=== PATIENT | male | born 1990 | race Caucasian/White ===

== ENCOUNTER 2020-08-04 11:19 | Emergency (ER) | payer SELFPAY ==
[~2020-08-04] VITALS: Ht 175.3 cm; Wt 79.8 kg
[2020-08-04] MEDS: MAG HYDROX/AL HYDROX/SIMETH 30 ML LIQUID UDC PO ONE (11:30)
[2020-08-04] MEDS: diphenhydrAMINE 50 MG/1 ML VIAL IV ONE (11:30)
[2020-08-04] MEDS: IV NORMAL SALINE 1000 ML BAG IV ONE (11:30)
[2020-08-04] MEDS: LIDOCAINE VISCUS 2% 15 ML UDC MM ONE (11:30)
[2020-08-04] MEDS: PROCHLORPERAZINE EDISYLATE 10 MG/2 ML VIAL IV ONE (11:30)
[2020-08-04 11:37] LABS: *BILIRUBIN,URIN NEGATIVE (NEGATIVE); *BLOOD, URINE NEGATIVE (NEGATIVE); *CLARITY,URINE CLOUDY (CLEAR); *COLOR,URINE YELLOW (YELLOW); *KETONES,URINE NEGATIVE (NEGATIVE); *UROBILINOGEN,URINE 0.2 E.U./dl (NORMAL); LEUKOCYTE ESTERASE ,URINE NEGATIVE (NEGATIVE); NITRITE, URINE NEGATIVE (NEGATIVE); PH,URINE 8.5 (5.0-8.0); UGLUCOSE NEGATIVE (NEGATIVE)
[2020-08-04 11:41] LABS: BASOPHILS # (AUTO) 0.1 K/uL (0.0-8.0); BASOPHILS % (AUTO) 0.6 % (0.0-2.0); EOSINOPHILS # (AUTO) 0.1 K/uL (0.0-0.7); EOSINOPHILS % (AUTO) 0.6 % (0.0-7.0); HEMOGLOBIN 14.2 g/dL (12.5-16.3); LYMPHOCYTES # (AUTO) 0.8 K/uL (20.0-40.0); LYMPHOCYTES % (AUTO) 8.8 % (20.5-51.5); MEAN CORPUSCULAR HEMOGLOBIN 28.6 uug (23.8-33.4); MEAN CORPUSCULAR HGB CONC 33 g/dL (32.5-36.3); MEAN CORPUSCULAR VOLUME 86.2 fL (73.0-96.2); MONOCYTES # (AUTO) 0.5 K/uL (2.0-10.0); MONOCYTES % (AUTO) 5.4 % (0.0-11.0); NEUTROPHILS % (AUTO) 84.6 % (38.5-71.5); PLATELET COUNT (AUTO) 182 K/uL (152-348); RED BLOOD CELL COUNT(AUTO) 4.98 MIL/uL (4.06-5.63); WHITE BLOOD COUNT (AUTO) 9.5 K/uL (3.6-10.2)
[2020-08-04] MEDS: FAMOTIDINE. 20 MG/2 ML VIAL IV ONE (11:45)
--- NOTE | 2020-08-04 11:45 | NUR ---
rECEVED PT FROM [facility] C/O ABDOMINAL PAIN WITH N/V pt fully awake and alert fallow command respirtion spon and easy examine by dr. DOWD ORDER GIVEN and carmita out
[2020-08-04 11:46] LABS: URINE AMORPHOUS PHOSPHATES MANY /HPF
[2020-08-04 11:48] LABS: MUCUS,URINE NONE SEEN /LPF (0-FEW); RBC,URINE NONE SEEN /HPF (0-3); WBC,URINE NONE SEEN /HPF (0-3)
[2020-08-04 11:49] LABS: *AMPHETAMINE, URINE NEGATIVE (NEGATIVE); *CANNABINOID, URINE POSITIVE (NEGATIVE); *COCCAINE, URINE POSITIVE (NEGATIVE); *OPIATE, URINE NEGATIVE (NEGATIVE); *PHENCYCLIDINE SCREEN,URINE NEGATIVE (NEGATIVE); BACTERIA,URINE NONE SEEN /HPF (NONE SEEN); SQUAMOUS EPITHELIAL CELL,UR NONE SEEN /HPF (NONE SEEN)
[2020-08-04 11:52] LABS: CREATININE 1.3 mg/dL (0.6-1.3); POTASSIUM 3.5 mmol/L (3.5-5.1)
[2020-08-04 11:53] LABS: ETHANOL < 3 MG/DL (0-0)
[2020-08-04 11:55] LABS: MAGNESIUM 1.8 mg/dL (1.8-2.4); PHOSPHOROUS 2.6 mg/dL (2.5-4.9)
[2020-08-04 11:58] LABS: BILIRUBIN,DIRECT 0.1 mg/dL (0.0-0.2); BILIRUBIN,TOTAL 0.3 mg/dL (0.2-1.0); TOTAL PROTEIN, SERUM 7.6 g/dL (6.4-8.2)
[2020-08-04] MEDS ORDERED: diphenhydrAMINE 50 MG/1 ML VIAL ONE (12:01)
[2020-08-04] MEDS ORDERED: MAG HYDROX/AL HYDROX/SIMETH 30 ML LIQUID UDC ONE (12:02)
[2020-08-04] MEDS ORDERED: HALOPERIDOL LACTATE 5 MG/1 ML VIAL ONE (12:02)
[2020-08-04] MEDS ORDERED: LIDOCAINE VISCUS 2% 15 ML UDC ONE (12:02)
[2020-08-04] MEDS ORDERED: PROCHLORPERAZINE EDISYLATE 10 MG/2 ML VIAL ONE (12:02)
[2020-08-04] MEDS ORDERED: FAMOTIDINE. 20 MG/2 ML VIAL IV ONE (12:03)
[2020-08-04] MEDS: HALOPERIDOL LACTATE 5 MG/1 ML VIAL IM ONE (12:21)
[2020-08-04] MEDS ORDERED: PROM25TA15 PO (12:25)
--- NOTE | 2020-08-04 12:30 | NUR ---
ivf infused and patent
--- NOTE | 2020-08-04 13:00 | NUR ---
pt responded to tx abdomin soft dineses abdominal pain no n/v d/c instraction given to pt fully and understood d/c home with rx waking with stady gait
[2020-08-04 13:29] VITALS: BP 137/84
== END 2020-08-04 13:15 | disposition home or self-care (01) ==
LOC: ER 11:19
DX: R11.2 Nausea with vomiting, unspecified (principal); F12.20 Cannabis dependence, uncomplicated; F14.20 Cocaine dependence, uncomplicated; F17.200 Nicotine dependence, unspecified, uncomplicated; Z82.49 Family history of ischemic heart disease and other diseases of the circulatory system; J45.909 Unspecified asthma, uncomplicated; Z87.11 Personal history of peptic ulcer disease
CPT/HCPCS: 36415; 80048; 80076; 80307; 80320; 81001; 83690; 83735; 84100; 85025; 96361; 96372; 96374; 96375; 99284; J0780; J1200; J1630; J3490; A4663; G0480; J7030